=== PATIENT | male | born 1970 | race Caucasian/White ===

== ENCOUNTER 2019-05-22 22:17 | Emergency (ER) | payer MEDICAID ==
[~2019-05-22] VITALS: Ht 187 cm; Wt 152.0 kg
--- NOTE | 2019-05-23 00:32 | ED Upper Extremity ---
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 Ashu ESPARZA Allergies and Home Medications Allergies Coded Allergies: diphenhydramine (Verified Allergy, Unknown, Itching, 05/23/19) Home Medications Naproxen 500 Mg Tablet, 500 MG PO BID Prescribed by: ROSMERY VARMA on 05/23/19 0103 Patient Home Medication List Home Medication List Reviewed: Yes Review of Systems Constitutional: no symptoms reported Musculoskeletal: see HPI Skin: no symptoms reported Psychiatric/Neurological: No Symptoms Reported Past Oakuvxg-Fwzgcv-Tlfibt Hx Patient Social History Recent Foreign Travel: No Contact w/Someone Who Travel: No Past Medical History Surgeries: No Respiratory: No Cardiac: No Neurological: No Genitourinary: No Gastrointestinal: No Musculoskeletal: No Endocrine: Yes (OBESITY) HEENT: No Cancer: No Psychosocial: No Integumentary: No Blood Disorders: No Physical Exam Vital Signs Vital Signs - First Documented 05/22/19 05/23/19 23:24 01:38 Temp 37.3 Pulse 98 Resp 22 B/P (MAP) 154/119 (131) Pulse Ox 100 O2 Delivery Room Air Capillary Refill : Height, Weight, BMI Height: '" Weight: lbs. oz. kg; BMI Method: General Appearance: WD/WN, no apparent distress, obese Neck: non-tender, full range of motion, supple, normal inspection Cardiovascular: normal peripheral pulses, regular rate, rhythm Respiratory: chest non-tender, normal breath sounds Gastrointestinal: non tender, soft Back: normal inspection, no CVA tenderness, no vertebral tenderness Shoulder: no evidence of injury; No asymmetry, No bone tenderness, No deformity, No ecchymosis; limited ROM, pain, soft tissue tenderness (MILD TENDERNESS TO ANTERIOR ASPECT OF LEFT SHOULDER); No swelling Elbow/Forearm: normal inspection, non-tender, no evidence of injury, normal ROM Wrist: Yes normal inspection, Yes non-tender, Yes no evidence of injury, Yes normal ROM Hand: normal inspection, non-tender, no evidence of injury, normal ROM Neurologic/Tendon: normal sensation, normal motor functions, normal tendon functions 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, no motor/sensory deficits, alert, normal mood/affect, oriented x 3 Skin: normal color, warm/dry; No ecchymosis; other (NO EXTERNAL EVIDENCE OF TRAUMA ) Procedures/Interventions Splinting and Joint Reduction : Arm Sling: [place] Progress/Results/Core Measures Results/Orders My Orders Orders - ROSMERY VARMA DO Shoulder, Left, 3 Views (05/23/19 00:01) Humerus, Left, 2 Views (05/23/19 00:01) Elbow, Left, 3 Views (05/23/19 00:01) Rx-Naproxen (Rx-Naprosyn) (05/23/19 00:56) [facility] Supplies Order (05/23/19 00:57) Vital Signs/I&O 05/22/19 05/23/19 23:24 01:38 Temp 37.3 37.2 Pulse 98 90 Resp 22 18 B/P (MAP) 154/119 (131) 140/99 Pulse Ox 100 O2 Delivery Room Air Progress Progress Note : Progress Note BOTH PT AND MORGUE LIBRARIAN WITH HIM, STATE THIS IS NOT TO BE FILED UNDER WORKMAN'S COMP Diagnostic Imaging Comments XRAYS: LEFT SHOULDER, LEFT HUMERUS, LEFT ELBOW--NO ACUTE PROCESS, PENDING RADIOLOGIST REVIEW Reviewed: Reviewed by Me Departure Impression Primary Impression: Left shoulder strain Additional Impression: Left elbow contusion Disposition: HOME, SELF-CARE Condition: Stable Departure-Patient Inst. Patient Instructions: How to Use a Shoulder Sling, Shoulder Sprain (DC) Add. Discharge Instructions: WEAR SLING AT ALL TIMES ICE TO AREA AT 20 MINUTE INTERVALS FOLLOW UP WITH OCCUP[facility] HEALTH TOMORROW FOR FURTHER CARE All discharge instructions reviewed with patient and/or family. Voiced understanding. Scripts Naproxen (Naproxen) 500 Mg Tablet 500 MG PO BID, #20 TAB Prov: ROSMERY VARMA DO 05/23/19 ROSMERY VARMA DO May 23, 2019 00:32
[2019-05-23] MEDS ORDERED: RX-NAPROXEN (NAPROSYN) 250 MG TAB PPK#4 PO STA (00:56)
[2019-05-23] MEDS ORDERED: NAPR-915 PO (01:03)
[2019-05-23 01:38] VITALS: BP 140/99
--- NOTE | 2019-05-23 08:20 | Diagnostic Imaging Report ---
INDICATION: Fall, pain COMPARISON: Imaging from the same date TECHNIQUE: 3 radiographs of the left elbow dated 05/23/2019 FINDINGS: No acute fracture or dislocation. No destructive osseous process. Mild degenerative changes with mild osteophyte formation. No joint effusion. No suspicious radiopaque foreign body. IMPRESSION: No acute osseous abnormality with mild degenerative changes. Dictated by: Dictated on workstation # [id number]
--- NOTE | 2019-05-23 08:20 | Diagnostic Imaging Report ---
INDICATION: Fall, pain COMPARISON: Imaging from the same date TECHNIQUE: Two radiographs of the left humerus dated 05/23/2019 FINDINGS: Mild degenerative changes of the acromioclavicular joint. No acute fracture or dislocation. No destructive osseous process. No suspicious radiopaque foreign body. IMPRESSION: No acute osseous abnormality. Dictated by: Dictated on workstation # [id number]
--- NOTE | 2019-05-23 08:25 | Diagnostic Imaging Report ---
PATIENT HISTORY: Fall, left shoulder pain. TECHNIQUE: 3 views of the left shoulder COMPARISON: None FINDINGS: Alignment appears normal. There are mild degenerative changes in the left acromioclavicular joint. No acute fracture is seen. Alignment appears normal. IMPRESSION: No acute osseous abnormality is seen in the left shoulder. If pain persists and there is concern for internal derangement, consider nonemergent MRI for further evaluation. Dictated by: Dictated on workstation # [id number]
== END 2019-05-23 01:38 | disposition home or self-care (01) ==
LOC: EDUNIT# 22:17 → ER 22:19
DX: S46.912A Strain of unspecified muscle, fascia and tendon at shoulder and upper arm level, left arm, initial encounter (principal); S50.02XA Contusion of left elbow, initial encounter; E66.9 Obesity, unspecified; Z68.41 Body mass index [BMI] 40.0-44.9, adult; Z88.8 Allergy status to other drugs, medicaments and biological substances; W01.198A Fall on same level from slipping, tripping and stumbling with subsequent striking against other object, initial encounter; Y92.59 Other trade areas as the place of occurrence of the external cause
CPT/HCPCS: 73030; 73060; 73080

== ENCOUNTER → 2019-07-19 | Outpatient (CLI) | payer MEDICAID ==
[~2019-07-19] MED LIST: NAPR-915 PO
== END ==
LOC: RAD 13:31
PROVIDERS: ATTEND Orthopaedic Surgery
DX: S43.422A Sprain of left rotator cuff capsule, initial encounter (principal); X58.XXXA Exposure to other specified factors, initial encounter

== ENCOUNTER 2022-02-01 01:10 | Emergency (ER) | payer BC, MEDICAID ==
[~2022-02-01] VITALS: Ht 188 cm; Wt 154.7 kg
[2022-02-01] MEDS ORDERED: METF-397 (01:32)
[2022-02-01] MEDS ORDERED: DAPA5TAB (01:32)
[2022-02-01] MEDS ORDERED: CEPH500T PO (01:39)
--- NOTE | 2022-02-01 01:39 | ED Fall/Injury ---
General Chief Complaint: Trauma-Non Activation Stated Complaint: FALL,RT FOOT PAIN,LANDED ON ARM OF LAWN CHAIR Source: patient Exam Limitations: no limitations History of Present Illness Date Seen by Provider: Feb 01, 2022 Time Seen by Provider: 01:22 Initial Comments Patient to ER by private conveyance with chief complaint that he fell just prior to arrival landed on arm of the lawnchair and ripped the skin under his fourth digit of his right foot as well as cut the skin on the distal portion of his great toe and broke the nail. He is diabetic. He is also having some discomfort in his left shoulder. He had rotator cuff surgery a year ago by Dr. Oquendo but still has full range of motion of his left shoulder. Did not hit his head. He has not had a tetanus vaccine in the last 5 years. Allergies and Home Medications Allergies Coded Allergies: diphenhydramine (Verified Allergy, Unknown, Itching, 05/23/19) Patient Home Medication List Home Medication List Reviewed: Yes Cephalexin (Cephalexin) 500 Mg Tablet, 500 MG PO TID Prescribed by: TYRA STODDARD on 02/01/22138 Dapagliflozin Propanediol (Farxiga) 5 Mg Tablet, (Reported) Entered as Reported by: IRIS BROOKE on 02/01/22131 Last Action: New Order Metformin HCl (Metformin HCl) 500 Mg Tablet, (Reported) Entered as Reported by: IRIS BROOKE on 02/01/22131 Last Action: New Order Naproxen (Naproxen) 500 Mg Tablet, 500 MG PO BID Prescribed by: ROSMERY VARMA on 05/23/19 0103 Review of Systems Review of Systems Constitutional: No chills Eyes: Denies Blindness, Denies Blurred Vision Ears, Nose, Mouth, Throat: denies ear pain, denies ear discharge Respiratory: No cough, No short of breath Cardiovascular: No chest pain, No palpitations Gastrointestinal: No abdominal pain, No constipation, No diarrhea All Other Systems Reviewed Negative Unless Noted: Yes Past Gcqvaks-Xkkokr-Boqhfd Hx Patient Social History Tobacco Use?: Yes Substance use?: No Alcohol Use?: Yes Alcohol Frequency: Once in a while Pt feels they are or have been: No Seasonal Allergies Seasonal Allergies: No Past Medical History Surgery/Hospitalization HX: left rotator cuff, niddm Surgeries: No Respiratory: No Cardiac: No Neurological: No Genitourinary: No Gastrointestinal: No Musculoskeletal: No Endocrine: Yes (OBESITY) HEENT: No Cancer: No Psychosocial: No Integumentary: No Blood Disorders: No Physical Exam Vital Signs Vital Signs - First Documented 02/01/22 01:27 Temp 36.3 Pulse 77 Resp 16 B/P (MAP) 158/91 (113) Pulse Ox 99 O2 Delivery Room Air Capillary Refill : Height, Weight, BMI Height: '" Weight: lbs. oz. kg; 43.00 BMI Method: General Appearance: WD/WN, no apparent distress HEENT: PERRL/EOMI, pharynx normal Neck: full range of motion, normal inspection Cardiovascular: normal peripheral pulses, regular rate, rhythm Respiratory: no respiratory distress, no accessory muscle use Extremities: normal range of motion, normal capillary refill, other (Full range of motion of his left shoulder. His right great toe has a skin abrasion that is hemostatic on the distal tip and a fracture of the nail going about 5 mm in. No avulsion of the nail. No nailbed injury. The fourth toe plantar surface has a linear 2 and half centimeter laceration that is hemostatic.) Teresa Coma Score Best Eye Response: (4) Open Spontaneously Best Verbal Response: (5) Oriented Best Motor Response: (6) Obeys Commands Teresa Total: 15 Procedures/Interventions Wound Location: Lower Extremities Other Wound Location Right foot fourth toe plantar surface Wound Length (cm): 3 Wound's Depth, Shape: linear, sub Q Wound Explored: no foreign body removed Irrigated w/ Saline (ccs): 150 Betadine Prep?: Yes (Chlorhexidine) Anesthesia: 1% Lidocaine Volume Anesthetic (ccs): 4 Wound Debrided: minimal Suture: Prolene Suture Size: 4-0 Number of Sutures: 4 Layer Closure?: 1 Number Deep Layer Sutures: 0 Sterile Dressing Applied?: Yes Wound Location: Lower Extremities Other Wound Location Right foot great toe distal tip Wound Length (cm): 1 Wound's Depth, Shape: superficial Wound Explored: no foreign body removed Irrigated w/ Saline (ccs): 100 Betadine Prep?: Yes (Chlorhexidine) Wound Debrided: minimal Other Closure Supply: Wound Adhesive Progress Cleaned with chlorhexidine and sterile saline allowed to dry and then covered with a small amount of cyanoacrylate. Progress/Results/Core Measures Results/Orders My Orders Orders - TYRA STODDARD Foot, Right, 3 View (02/01/22 01:35) Lidocaine 1% Inj 20 Ml (Xylocaine 1% Inj (02/01/22 01:45) Dipht,Pertuss(Acell),Tet Adult (Boostrix (02/01/22 03:45) Medications Given in ED Vital Signs/I&O 02/01/22 02/01/22 01:27 03:40 Temp 36.3 36.4 Pulse 77 71 Resp 16 16 B/P (MAP) 158/91 (113) 145/89 Pulse Ox 99 100 O2 Delivery Room Air Room Air Progress Progress Note : Time: 01:38 Progress Note MonthsWe will clean the foot give him a tetanus vaccine and numb up the toes and stitched up the fourth toe with some suture. Antibiotic prophylaxis. With his good range of motion and no bony tenderness on his left shoulder and x-ray is unlikely to yield useful results. We have encouraged him to go back to Dr. Oquendo for reexamination of his left shoulder. Diagnostic Imaging Diagonstic Imaging: Xray Plain Films/CT/US/NM/MRI: other (Right foot) Comments No acute osseous abnormality. [facility] [place], [place] NAME: [facility] REC#: [id number] PT STATUS: DEP ER : 1970 PHYSICIAN: TYRA STODDARD MD ADMIT DATE: 02/01/22/ER Signed Date of Exam:02/01/22 FOOT, RIGHT, 3 VIEW FOOT, RIGHT, 3 VIEW INDICATION: Right foot pain COMPARISON: None available. TECHNIQUE: 3 nonweightbearing views of the right foot. FINDINGS: Chronic hypertrophic bone formation along the plantar and lateral base of the 1st proximal phalanx. No acute fracture is present. Multifocal degenerative changes within the midfoot. Degenerative arthritis is also present at the 1st MTP. No radiopaque foreign body. IMPRESSION: 1. No acute fracture. 2. 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 Dictated by: Dictated on workstation # [id number] Dict: 02/01/22 0636 Trans: 02/01/22 0837 [facility] [id number] Interpreted by: EROS REYES MD Electronically signed by: EROS REYES MD 02/01/22 0837 Reviewed: Reviewed by Me Departure Impression Primary Impression: Fall Qualified Codes: W19.XXXA - Unspecified fall, initial encounter Additional Impressions: Toe laceration Qualified Codes: S91.114A - Laceration without foreign body of right lesser toe(s) without damage to nail, initial encounter Left anterior shoulder pain Disposition: HOME, SELF-CARE Condition: Stable Departure-Patient Inst. Decision time for Depature: 03:26 Referrals: CARA ESPARZA MD (PCP/Family) Primary Care Physician Patient Instructions: Laceration Repair With Glue ED, Laceration Repair With Stitches (DC) Add. Discharge Instructions: Keep the wound clean with regular soap and water only. Do not use hydrogen peroxide, alcohol, iodine or chlorhexidine as this will delay wound healing. The glue will flake off the end of your great toe on its own in the next week. The sutures will need to come out in 7 to 10 days. Return to the ER or your doctor for suture removal. Elevate your foot to reduce swelling and pain. Tylenol 1000 mg every 8 hours as needed for pain. Ibuprofen 800 mg every 8 hours as needed for pain. The numbness will wear off in the next hour or so. Keflex 1 capsule 3 times a day with food to prevent infection in your foot. Return to your doctor or the ER if you are noticing increasing redness, swelling going up your foot and leg or other worrisome symptoms of infection such as purulent drainage from the wound or fever. All discharge instructions reviewed with patient and/or family. Voiced understanding. Scripts Cephalexin (Cephalexin) 500 Mg Tablet 500 MG PO TID for 7 Days, #21 TAB 0 Refills Prov: TYRA STODDARD 02/01/22 TYRA STODDARD Feb 01, 2022 01:39
[2022-02-01] MEDS ORDERED: LIDOCAINE 1% INJ 20 ML VIAL INJ ONE (01:45)
[2022-02-01 03:40] VITALS: BP 145/89
[2022-02-01] MEDS ORDERED: TETANUS,DIPTH,PERTUSS P/F (BOOSTRIX) 0.5 ML VIAL IM ONE (03:45)
--- NOTE | 2022-02-01 06:39 | Diagnostic Imaging Report ---
FOOT, RIGHT, 3 VIEW INDICATION: Right foot pain COMPARISON: None available. TECHNIQUE: 3 nonweightbearing views of the right foot. FINDINGS: Chronic hypertrophic bone formation along the plantar and lateral base of the 1st proximal phalanx. No acute fracture is present. Multifocal degenerative changes within the midfoot. Degenerative arthritis is also present at the 1st MTP. No radiopaque foreign body. IMPRESSION: 1. No acute fracture. 2. 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 Dictated by: Dictated on workstation # [id number]
== END 2022-02-01 03:41 | disposition home or self-care (01) ==
LOC: EDUNIT# 01:10 → ER 01:12
DX: S91.114A Laceration without foreign body of right lesser toe(s) without damage to nail, initial encounter (principal); M25.512 Pain in left shoulder; E66.9 Obesity, unspecified; Z68.41 Body mass index [BMI] 40.0-44.9, adult; Z23 Encounter for immunization; W26.8XXA Contact with other sharp object(s), not elsewhere classified, initial encounter
CPT/HCPCS: 12001; 73630; 90715

== ENCOUNTER 2022-02-12 08:25 | Emergency (ER) | payer BC, MEDICAID ==
[~2022-02-12] VITALS: Ht 187 cm; Wt 106.6 kg
[~2022-02-12 08:25] MED LIST changes: +CEPH500T PO; +DAPA5TAB; +METF-397
[2022-02-12 08:31] VITALS: BP 132/72
== END 2022-02-12 08:57 | disposition home or self-care (01) ==
LOC: EDUNIT# 08:25 → ER 08:26
DX: Z48.02 Encounter for removal of sutures (principal)